=== PATIENT | female | born 1970 | race Caucasian/White ===

== ENCOUNTER 2017-01-11 12:29 | Outpatient (CLI) | payer MEDICAID | END 2017-01-11 23:59 | DX: Z13.9 Encounter for screening, unspecified (principal) ==

== ENCOUNTER 2017-07-27 10:16 | Outpatient (CLI) | payer MEDICAID ==
[2017-07-27 13:23] LABS: ALBUMIN/GLOBULIN RATIO 1.3 (1.0-2.2); BILIRUBIN,TOTAL 0.4 mg/dL (0.2-1.0); CALCIUM 8.9 mg/dL (8.5-10.3); CREATININE 0.6 mg/dL (0.4-1.0); POTASSIUM 4.2 mmol/L (3.5-5.0); TOTAL PROTEIN 6.8 g/dL (6.7-8.2)
== END 2017-07-27 10:17 | disposition home or self-care (01) ==
LOC: LAB.N 10:16
PROVIDERS: ATTEND Physician Assistant
DX: R60.0 Localized edema (principal)
CPT/HCPCS: 36415; 80053

== ENCOUNTER 2018-02-03 08:00 | Outpatient (CLI) | payer MEDICAID | END 2018-02-03 08:01 | disposition home or self-care (01) | LOC: LAB.N 08:00 | PROVIDERS: ATTEND Nurse Practitioner Gerontology | DX: Z79.899 Other long term (current) drug therapy (principal) | CPT/HCPCS: 84132 ==

== ENCOUNTER 2018-03-09 08:00 | Outpatient (CLI) | payer MEDICAID | END 2018-03-09 23:59 | LOC: LAB.N 08:00 | PROVIDERS: ATTEND Obstetrics & Gynecology | DX: Z53.9 Procedure and treatment not carried out, unspecified reason (principal) | CPT/HCPCS: 36415; 83001; 83002 ==

== ENCOUNTER 2018-03-17 08:00 | Outpatient (CLI) | payer MEDICAID ==
[2018-03-17 19:20] LABS: ALBUMIN 3.9 g/dL (3.2-5.5); ALBUMIN/GLOBULIN RATIO 1.3 (1.0-2.2); BILIRUBIN,TOTAL 0.3 mg/dL (0.2-1.0); CALCIUM 9.1 mg/dL (8.5-10.3); CREATININE 0.7 mg/dL (0.4-1.0); TOTAL PROTEIN 6.8 g/dL (6.7-8.2)
== END 2018-03-17 08:01 | disposition home or self-care (01) ==
LOC: LAB.N 08:00
PROVIDERS: ATTEND Nurse Practitioner Gerontology
DX: Z13.9 Encounter for screening, unspecified (principal); M10.9 Gout, unspecified
CPT/HCPCS: 36415; 80053; 84550

== ENCOUNTER 2019-01-15 08:00 | Outpatient (CLI) | payer MEDICAID ==
[2019-01-15 12:37] LABS: BASOPHILS # (AUTO) 0.1 10^3/uL (0.0-0.1); EOSINOPHILS # (AUTO) 0.6 10^3/uL (0.0-0.7); EOSINOPHILS % (AUTO) 6.9 %; LYMPHOCYTES # (AUTO) 2.9 10^3/uL (1.5-3.5); LYMPHOCYTES % (AUTO) 31.5 %; MEAN CORPUSCULAR HEMOGLOBIN 34.6 pg (27.0-31.0); MEAN CORPUSCULAR HGB CONC 35.2 g/dL (32.0-36.0); MEAN CORPUSCULAR VOLUME 98.3 fL (81.0-99.0); MEAN PLATELET VOLUME 9.4 fL (7.9-10.8); MONOCYTES # (AUTO) 0.6 10^3/uL (0.0-1.0); NEUTROPHILS # (AUTO) 4.9 10^3/uL (1.5-6.6); NEUTROPHILS % (AUTO) 53.6 %; PLT - PLATELET COUNT 248 10^3/uL (130-450); RED BLOOD COUNT 4.62 10^6/uL (4.20-5.40); RED CELL DISTRIBUTION WIDTH 14.2 % (12.0-15.0); WHITE BLOOD COUNT 9.1 x10^3/uL (4.8-10.8)
[2019-01-15 12:59] LABS: ALBUMIN 3.7 g/dL (3.2-5.5); ALBUMIN/GLOBULIN RATIO 1.2 (1.0-2.2); ALKALINE PHOSPHATASE 65 IU/L (42-121); ALT ALANINE AMINOTRANSFERASE 30 IU/L (10-60); AST ASPARTATE AMINOTRANSFERASE 24 IU/L (10-42); BILIRUBIN,TOTAL 0.3 mg/dL (0.2-1.0); BUN - BLOOD UREA NITROGEN 8 mg/dL (6-20); CALCIUM 8.8 mg/dL (8.5-10.3); CARBON DIOXIDE - CO2 27 mmol/L (21-32); CHLORIDE 104 mmol/L (101-111); CHOL/HDL RATIO 4.3 (<4.4); CHOLESTEROL 197 mg/dL; CREATININE 0.6 mg/dL (0.4-1.0); GFR - MDRD 107 (>89); GLUCOSE 119 mg/dL (70-100); HDL CHOLESTEROL 46 mg/dL; LDL CHOLESTEROL,CALCULATED 109 mg/dL; LDL/HDL RATIO 2.4 (<4.4); SODIUM 139 mmol/L (135-145); TOTAL PROTEIN 6.8 g/dL (6.7-8.2); VLDL CHOLESTEROL 42 mg/dL
== END 2019-01-15 23:59 | disposition home or self-care (01) ==
LOC: LAB.N 08:00
PROVIDERS: ATTEND Nurse Practitioner Gerontology
DX: Z13.9 Encounter for screening, unspecified (principal)
CPT/HCPCS: 36415; 80053; 80061; 83721; 84443; 85025

== ENCOUNTER 2019-06-11 08:00 | Outpatient (CLI) | payer MEDICAID ==
[2019-06-11 19:23] LABS: ALBUMIN 3.7 g/dL (3.2-5.5); ALBUMIN/GLOBULIN RATIO 1.2 (1.0-2.2); BILIRUBIN,TOTAL 0.4 mg/dL (0.2-1.0); CALCIUM 8.8 mg/dL (8.5-10.3); CREATININE 0.6 mg/dL (0.4-1.0); TOTAL PROTEIN 6.9 g/dL (6.7-8.2)
== END 2019-06-11 23:59 | disposition home or self-care (01) ==
LOC: LAB.N 08:00
PROVIDERS: ATTEND Nurse Practitioner Gerontology
DX: Z79.899 Other long term (current) drug therapy (principal)
CPT/HCPCS: 36415; 80053

== ENCOUNTER 2020-05-23 11:25 | Outpatient (CLI) | payer MEDICAID ==
[2020-05-23 18:12] LABS: BASOPHILS # (AUTO) 0.1 10^3/uL (0.0-0.1); BASOPHILS % (AUTO) 0.6 %; EOSINOPHILS # (AUTO) 0.4 10^3/uL (0.0-0.7); EOSINOPHILS % (AUTO) 3.3 %; HGB - HEMOGLOBIN 14.9 g/dL (12.0-16.0); LYMPHOCYTES # (AUTO) 3.2 10^3/uL (1.5-3.5); LYMPHOCYTES % (AUTO) 30.4 %; MEAN CORPUSCULAR HEMOGLOBIN 33.3 pg (27.0-31.0); MEAN CORPUSCULAR HGB CONC 32.5 g/dL (32.0-36.0); MEAN CORPUSCULAR VOLUME 102.5 fL (81.0-99.0); MEAN PLATELET VOLUME 11.6 fL (7.9-10.8); MONOCYTES # (AUTO) 0.8 10^3/uL (0.0-1.0); PLT - PLATELET COUNT 229 10^3/uL (130-450); RED BLOOD COUNT 4.47 10^6/uL (4.20-5.40); RED CELL DISTRIBUTION WIDTH 13.9 % (12.0-15.0); WHITE BLOOD COUNT 10.6 x10^3/uL (4.8-10.8)
[2020-05-23 18:40] LABS: ALBUMIN 3.9 g/dL (3.2-5.5); ALBUMIN/GLOBULIN RATIO 1.3 (1.0-2.2); ALKALINE PHOSPHATASE 68 IU/L (42-121); ALT ALANINE AMINOTRANSFERASE 28 IU/L (10-60); AST ASPARTATE AMINOTRANSFERASE 21 IU/L (10-42); BILIRUBIN,TOTAL 0.5 mg/dL (0.2-1.0); BUN - BLOOD UREA NITROGEN 10 mg/dL (6-20); CALCIUM 8.9 mg/dL (8.5-10.3); CARBON DIOXIDE - CO2 28 mmol/L (21-32); CHLORIDE 103 mmol/L (101-111); CHOLESTEROL 163 mg/dL; CREATININE 0.8 mg/dL (0.4-1.0); GLUCOSE 97 mg/dL (70-100); HDL CHOLESTEROL 41 mg/dL; LDL CHOLESTEROL,CALCULATED 79 mg/dL; LDL/HDL RATIO 1.9 (<4.4); SODIUM 140 mmol/L (135-145); TOTAL PROTEIN 6.8 g/dL (6.7-8.2); URIC ACID 9.6 mg/dL (2.6-7.2); VLDL CHOLESTEROL 43 mg/dL
== END 2020-05-23 23:59 | disposition home or self-care (01) ==
LOC: LAB.WCP 11:25
PROVIDERS: ATTEND Nurse Practitioner
DX: C64.9 Malignant neoplasm of unspecified kidney, except renal pelvis (principal); E66.01 Morbid (severe) obesity due to excess calories; I10 Essential (primary) hypertension; K21.9 Gastro-esophageal reflux disease without esophagitis; M10.9 Gout, unspecified; Z86.69 Personal history of other diseases of the nervous system and sense organs; J45.909 Unspecified asthma, uncomplicated
CPT/HCPCS: 36415; 80053; 80061; 83721; 84443; 84550; 85025

== ENCOUNTER 2020-07-01 09:56 | Outpatient (CLI) | payer MEDICARE ==
--- NOTE | 2020-07-11 08:49 | Mammography Report ---
BILATERAL DIGITAL SCREENING MAMMOGRAM 3D/2D: 07/01/2020 CLINICAL: Routine screening. No prior exams were available for comparison. There are scattered fibroglandular elements in both br easts. There are benign lymph nodes in both breasts. There is an oval equal density mass with a circumscribed margin in the left breast at 3 o'clock poste rior depth. No other significant masses, calcifications, or other findings are seen in either breast. IMPRESSION: INCOMPLETE: NEEDS ADDITIONAL IMAGING EVALUATION The oval equal density mass in the left breast likely represents a lymph node and is indeterminate. An ultrasound is recommended. This exam was interpreted at Station ID: [id number]. NOTE: For mammograms, a report in lay terms will be sent to the patient. Approximately 15% of breast malignancies will not be visualized mammographically. In the management of a palpable breast mass, a negative mammogram must not discourage biopsy of a clinically suspicious lesion. Electronically Signed By: Suhas tristan/vilma:07/09/2020 10:40:41 ACR BI-RADS Category 0: Incomplete [id number] B -Scattered fibroglandular 0 Ultrasound [id number] Immediate follow-up B
== END 2020-07-01 09:57 | disposition home or self-care (01) ==
LOC: DI.N 09:56
PROVIDERS: ATTEND Nurse Practitioner
DX: Z12.31 Encounter for screening mammogram for malignant neoplasm of breast (principal); Z80.3 Family history of malignant neoplasm of breast; R92.8 Other abnormal and inconclusive findings on diagnostic imaging of breast
CPT/HCPCS: 77063; 77067

== ENCOUNTER 2020-07-13 06:56 | Outpatient (CLI) | payer MEDICARE ==
[2020-07-13] MEDS ORDERED: IOVERSOL 320 100 ML VIAL IVP ONE ×3 (09:45→10:46)
--- NOTE | 2020-07-13 10:56 | CT Report ---
PROCEDURE: ABDOMEN W/WO INDICATIONS: CLAUDICATION, PERIPHERAL EDEMA, RENAL CA CONTRAST: IV CONTRAST: Optiray 320 ml: 140 PO CONTRAST: *NO PO CONTRAST TECHNIQUE: After the administration of intravenous contrast, 5 mm thick sections acquired from the diaphragm to the symphysis. 5 mm coronal and sagittal reformats were acquired. For radiation dose reduction, the following was used: automated exposure control, adjustment of mA and/or kV according to patient siz e. COMPARISON: None available at the time of this study. FINDINGS: Image quality: This study is limited by body habitus. Lung bases: Lung bases are clear. Heart size is normal. Genitourinary: On precontrast imaging, no renal stones are seen. Right superolateral partial nephrec teo changes are seen. No masses or abnormal enhancement can be seen in this region. Prominent renal calyces can be seen at this site, however. The renal calyces otherwise are unremarkable. There is no hydronephrosis. The left kidney is unremarkable. Solid organs: Liver and spleen are normal in size and enhancement. Diffuse fatty liver infiltration can be seen. Gallbladder is decompressed at the time of this study Biliary system is non dilated. Pancreas enhances normally. No adrenal nodules. Peritoneum and bowel: Unenhanced bowel loops are normal in caliber and wall thickness. No free flui d or air. Nodes and vessels: No retroperitoneal or mesenteric adenopathy by size criteria. Aorta and inferior vena cava are normal in caliber. Bones: No suspicious bony lesions. No vertebral body compression fractures. Mild dextroconvex scol iotic curvature is seen. Focal L5-S1 degenerative change is seen. Milder degenerative changes are see n elsewhere. Miscellaneous: There is a fat-containing hernia seen involving the right upper quadrant, as on serie s 7 image 39. A fat-containing periumbilical hernia is also seen. IMPRESSION: Limited study demonstrating right partial nephrectomy change. No findings of local recurrence can be seen. No new masses are seen. No carmella findings of metastatic disease are seen. Incidental note is made of: Fat-containing anterior abdominal wall hernia within the right upper quadrant Fatty liver infiltration Fat-containing periumbilical hernia Dextroconvex scoliotic curvature Focal L5-S1 degenerative change Reviewed by: Andrzej Arreola MD on 07/13/2020 9:55 AM [facility] Approved by: Andrzej Arreola MD on 07/13/2020 9:55 AM [facility] Station ID: [id number]
--- NOTE | 2020-07-13 11:48 | Ultrasound Report ---
PROCEDURE: Duplex Ext Veins Bilateral INDICATIONS: Claudication, peripheral edema. TECHNIQUE: Real-time imaging, as well as color and pulse Doppler interrogation, were performed of the deep veins of both legs from the inguinal ligament to the popliteal fossa. COMPARISON: Correlation is made with the accompanying lower extremity arterial study, 07/13/2020. FINDINGS: The deep veins are normally compressible, and free of intraluminal thrombus. Color and pu lse Doppler demonstrate normal phasic intravascular flow. There is normal augmentation response to d istal compression maneuver. This study is limited by body habitus. IMPRESSION: No findings of deep venous thrombosis are seen. Reviewed by: Andrzej Arreola MD on 07/13/2020 10:47 AM [facility] Approved by: Andrzej Arreola MD on 07/13/2020 10:47 AM [facility] Station ID: [id number]
--- NOTE | 2020-07-13 11:52 | Ultrasound Report ---
PROCEDURE: Duplex Lwr Ext Arterial Bilat INDICATIONS: CLAUDICATION, PERIPHERAL EDEMA TECHNIQUE: Color and pulse Doppler interrogation was performed of both lower extremity arterial systems, with im age documentation. COMPARISON: Correlation is made with the accompanying venous examination, 07/13/2020 FINDINGS: Normal-appearing, triphasic waveforms are seen. No focal increased flow velocity is seen t o suggest a hemodynamically significant stenosis. No significant grayscale abnormality is seen. This study is limited by body habitus. IMPRESSION: No hemodynamically significant stenosis is detected. Reviewed by: Andrzej Arreola MD on 07/13/2020 10:51 AM [facility] Approved by: Andrzej Arreola MD on 07/13/2020 10:51 AM [facility] Station ID: [id number]
== END 2020-07-13 06:57 | disposition home or self-care (01) ==
LOC: DI 06:56
PROVIDERS: ATTEND Nurse Practitioner
DX: Z08 Encounter for follow-up examination after completed treatment for malignant neoplasm (principal); I73.9 Peripheral vascular disease, unspecified; R60.9 Edema, unspecified; I87.319 Chronic venous hypertension (idiopathic) with ulcer of unspecified lower extremity; Z85.528 Personal history of other malignant neoplasm of kidney; Z90.5 Acquired absence of kidney
CPT/HCPCS: 36415; 74170; 82565; 93925; 93970; Q9967

== ENCOUNTER 2021-07-24 16:22 | Outpatient (CLI) | payer MEDICARE, MEDICAID ==
[2021-07-24 21:07] LABS: BASOPHILS # (AUTO) 0.1 10^3/uL (0.0-0.1); BASOPHILS % (AUTO) 0.5 %; EOSINOPHILS # (AUTO) 0.3 10^3/uL (0.0-0.7); EOSINOPHILS % (AUTO) 2.3 %; HCT - HEMATOCRIT 42.6 % (37.0-47.0); HGB - HEMOGLOBIN 13.8 g/dL (12.0-16.0); LYMPHOCYTES # (AUTO) 2.4 10^3/uL (1.5-3.5); LYMPHOCYTES % (AUTO) 20.4 %; MEAN CORPUSCULAR HEMOGLOBIN 31.8 pg (27.0-31.0); MEAN CORPUSCULAR HGB CONC 32.4 g/dL (32.0-36.0); MEAN CORPUSCULAR VOLUME 98.2 fL (81.0-99.0); MEAN PLATELET VOLUME 11.4 fL (7.9-10.8); MONOCYTES # (AUTO) 0.8 10^3/uL (0.0-1.0); MONOCYTES % (AUTO) 6.9 %; NEUTROPHILS # (AUTO) 8.1 10^3/uL (1.5-6.6); NEUTROPHILS % (AUTO) 69.1 %; PLT - PLATELET COUNT 358 10^3/uL (130-450); RED BLOOD COUNT 4.34 10^6/uL (4.20-5.40); RED CELL DISTRIBUTION WIDTH 14.5 % (12.0-15.0); WHITE BLOOD COUNT 11.8 x10^3/uL (4.8-10.8)
[2021-07-24 21:25] LABS: ALBUMIN 3.6 g/dL (3.2-5.5); ALBUMIN/GLOBULIN RATIO 0.9 (1.0-2.2); ALKALINE PHOSPHATASE 85 IU/L (42-121); ALT ALANINE AMINOTRANSFERASE 24 IU/L (10-60); AST ASPARTATE AMINOTRANSFERASE 21 IU/L (10-42); BILIRUBIN,TOTAL 0.7 mg/dL (0.2-1.0); BUN - BLOOD UREA NITROGEN 9 mg/dL (6-20); CALCIUM 9.1 mg/dL (8.5-10.3); CARBON DIOXIDE - CO2 27 mmol/L (21-32); CHLORIDE 101 mmol/L (101-111); CHOLESTEROL 169 mg/dL; CREATININE 0.9 mg/dL (0.4-1.0); GFR - MDRD 66 (>89); GLUCOSE 101 mg/dL (70-100); HDL CHOLESTEROL 42 mg/dL; LDL CHOLESTEROL,CALCULATED 97 mg/dL; LDL/HDL RATIO 2.3 (<4.4); POTASSIUM 4.3 mmol/L (3.5-5.0); SODIUM 140 mmol/L (135-145); TOTAL PROTEIN 7.5 g/dL (6.7-8.2); TRIGLYCERIDES 152 mg/dL; URIC ACID 9.4 mg/dL (2.6-7.2); VLDL CHOLESTEROL 30 mg/dL
[2021-07-24 22:01] LABS: ESTIMATED AVERAGE GLUCOSE 126 mg/dL (70-100)
== END 2021-07-24 16:23 | disposition home or self-care (01) ==
LOC: LAB.N 16:22
PROVIDERS: ATTEND Family Medicine
DX: L03.90 Cellulitis, unspecified (principal); M10.9 Gout, unspecified; E66.01 Morbid (severe) obesity due to excess calories
CPT/HCPCS: 36415; 80053; 80061; 83036; 83721; 84550; 85025; 87040

== ENCOUNTER 2021-08-17 11:17 | Outpatient (CLI) | payer MEDICARE, MEDICAID ==
[2021-08-17 18:00] LABS: CALCIUM 9.3 mg/dL (8.5-10.3); POTASSIUM 4.7 mmol/L (3.5-5.0)
== END 2021-08-17 23:59 | disposition home or self-care (01) ==
LOC: LAB.WCP 11:17
PROVIDERS: ATTEND Family Medicine
DX: I10 Essential (primary) hypertension (principal)
CPT/HCPCS: 36415; 80048

== ENCOUNTER 2021-08-29 17:38 | Outpatient (CLI) | payer MEDICARE, MEDICAID | END 2021-08-29 23:59 | disposition EMS.NT | LOC: EMS 17:38 | DX: M25.519 Pain in unspecified shoulder (principal) ==

== ENCOUNTER 2022-08-20 18:25 | Outpatient (CLI) | payer MEDICARE, MEDICAID | END 2022-08-20 18:26 | disposition EMS.NT | LOC: EMS 18:25 | DX: R53.81 Other malaise (principal) ==

== ENCOUNTER 2022-08-25 21:03 | Outpatient (CLI) | payer MEDICARE, MEDICAID | END 2022-08-25 21:04 | disposition critical access hospital (66) | LOC: EMS 21:03 | DX: R06.02 Shortness of breath (principal); R06.2 Wheezing; R05.9 Cough, unspecified; R53.1 Weakness; R50.9 Fever, unspecified; R41.82 Altered mental status, unspecified; S81.801A Unspecified open wound, right lower leg, initial encounter; X58.XXXA Exposure to other specified factors, initial encounter | CPT/HCPCS: A0425; A0429 ==

== ENCOUNTER 2022-10-11 18:14 | Outpatient (CLI) | payer MEDICARE, MEDICAID | END 2022-10-11 23:59 | disposition critical access hospital (66) | LOC: EMS 18:14 | DX: R10.2 Pelvic and perineal pain (principal); M79.601 Pain in right arm; M79.604 Pain in right leg; W07.XXXA Fall from chair, initial encounter; Y92.020 Kitchen in mobile home as the place of occurrence of the external cause; R60.0 Localized edema | CPT/HCPCS: A0425; A0429 ==

== ENCOUNTER 2022-10-11 18:36 | Emergency (ER) | payer MEDICARE, MEDICAID ==
[2022-10-11 21:03] LABS: BASOPHILS # (AUTO) 0.1 10^3/uL (0.0-0.1); BASOPHILS % (AUTO) 0.5 %; EOSINOPHILS # (AUTO) 0.4 10^3/uL (0.0-0.7); EOSINOPHILS % (AUTO) 3.2 %; HCT - HEMATOCRIT 41.2 % (37.0-47.0); HGB - HEMOGLOBIN 12.9 g/dL (12.0-16.0); LYMPHOCYTES # (AUTO) 3.2 10^3/uL (1.5-3.5); LYMPHOCYTES % (AUTO) 24.7 %; MEAN CORPUSCULAR HEMOGLOBIN 28.9 pg (27.0-31.0); MEAN CORPUSCULAR HGB CONC 31.3 g/dL (32.0-36.0); MEAN CORPUSCULAR VOLUME 92.4 fL (81.0-99.0); MEAN PLATELET VOLUME 9.6 fL (7.9-10.8); MONOCYTES # (AUTO) 0.8 10^3/uL (0.0-1.0); MONOCYTES % (AUTO) 6.1 %; NEUTROPHILS # (AUTO) 8.4 10^3/uL (1.5-6.6); PLT - PLATELET COUNT 330 10^3/uL (130-450); RED BLOOD COUNT 4.46 10^6/uL (4.20-5.40); RED CELL DISTRIBUTION WIDTH 16.4 % (12.0-15.0); WHITE BLOOD COUNT 12.9 x10^3/uL (4.8-10.8)
[2022-10-11 21:18] LABS: ALBUMIN 3.7 g/dL (3.2-5.5); BILIRUBIN,TOTAL 0.4 mg/dL (0.2-1.0); CALCIUM 9.3 mg/dL (8.5-10.3); CREATININE 0.7 mg/dL (0.4-1.0); POTASSIUM 4.3 mmol/L (3.5-5.0); TOTAL PROTEIN 7.3 g/dL (6.7-8.2)
--- NOTE | 2022-10-11 23:02 | XRAY Report ---
PROCEDURE: Sacrum/Coccyx INDICATIONS: pain TECHNIQUE: 3 views of the sacrum and coccyx acquired. COMPARISON: None. FINDINGS: Bones: No definite fracture identified. There is moderate degenerative disc disease at L5-S1 as well as moderate facet arthropathy in the lower lumbar spine. No suspicious bony lesions. Soft tissues: Visualized bowel gas pattern is normal. No suspicious soft tissue densities. IMPRESSION: 1. No definite fracture identified. Reviewed by: Suhas Nash MD on 10/11/2022 11:[address] [facility] Approved by: Suhas Nash MD on 10/11/2022 11:[address] [facility] Station ID: [id number]
--- NOTE | 2022-10-11 23:05 | XRAY Report ---
PROCEDURE: Knee 3 View RT INDICATIONS: pain TECHNIQUE: 3 views of the right knee were acquired. COMPARISON: None. FINDINGS: Bones: No fractures or dislocations. There is moderate severe joint space narrowing in the medial co mpartment and moderate narrowing in the lateral compartment. There is mild lateral shift of the thompson la. Tricompartmental osteophytosis is present. Visualized osseous structures appear osteopenic. No everett spicious bony lesions. Soft tissues: There is a small to moderate joint effusion. No suspicious soft tissue calcifications . IMPRESSION: 1. No definite acute fracture or dislocation. 2. Small to moderate joint effusion. 3. Tricompartmental osteoarthritic changes including moderate to severe joint space narrowing in the medial compartment. Reviewed by: Suhas Nash MD on 10/11/2022 11:04 PM [facility] Approved by: Suhas Nash MD on 10/11/2022 11:04 PM [facility] Station ID: [id number]
--- NOTE | 2022-10-11 23:06 | XRAY Report ---
PROCEDURE: Shoulder 2 View RT INDICATIONS: pain TECHNIQUE: 2 views of the shoulder were acquired. COMPARISON: None. FINDINGS: Bones: No fractures or dislocations. There is moderate degeneration of the glenohumeral joint. Supe rior migration of the humeral head is present with respect to the glenoid. There is mild acromioclavi cular joint degeneration. No suspicious bony lesions. Visualized ribs appear intact. Soft tissues: No suspicious soft tissue calcifications. IMPRESSION: 1. No fracture or dislocation. Reviewed by: Suhas Nash MD on 10/11/2022 11:05 PM [facility] Approved by: Suhas Nash MD on 10/11/2022 11:05 PM [facility] Station ID: [id number]
--- NOTE | 2022-10-11 23:43 | ED Physician Documentation ---
History of Present Illness - Stated complaint Stated Complaint: FELL/R SIDE PX - Chief complaint Chief Complaint: Back Pain - History obtained from History obtained from: Patient, EMS - History of Present Illness Timing: Today - Additonal information Additional information: 52-year-old Chaim Dowell was discharged from [facility] today back to her trailer. When she arrived there she had no help available. She had some difficult time getting into her trailer and she had a fall trying to get to the bathroom. She was too weak to care for herself and had to call the ambulance. She relates a stay at [facility] greater than 1 month for influenza pneumonia complicated by a thumbtack foreign body in the right lung. She has been deconditioned and lives in marginal conditions to begin with. She is not able to care for herself in her home at this time. She has fallen in her trailer and is complaining of pain in her R shoulder, her sacrum and coccyx and her right knee. Review of Systems Constitutional: denies: Fever Eyes: denies: Decreased vision Ears: denies: Ear pain Nose: denies: Congestion Throat: denies: Sore throat Cardiac: reports: Chest pain / pressure Respiratory: reports: Dyspnea, Cough GI: denies: Vomiting : denies: Dysuria Skin: denies: Rash PD PAST MEDICAL HISTORY - Past Medical History Past Medical History: Yes Cardiovascular: Hypertension Respiratory: COPD, Emphysema, Shortness of breath Neuro: Seizure disorder Endocrine/Autoimmune: Type 2 diabetes GI: GERD SNACK BAR COOK: Endometriosis : Incontinence HEENT: Other Psych: Depression, Eating disorder Musculoskeletal: Rheumatoid arthritis, Gout, Chronic back pain Derm: Other - Past Surgical History General: Other /SNACK BAR COOK: Hysterectomy, Other - Present Medications Home Medications: Ambulatory Orders Medication Instructions Recorded Confirmed Fluoxetine HCl 40 mg PO DAILY 07/22/20 10/11/22 Ibuprofen 800 mg PO TID PRN 07/22/20 10/11/22 Lisinopril [Zestril] 40 mg PO DAILY 07/22/20 10/11/22 Albuterol Sulf [Ventolin Hfa 1 - 2 puffs INH Q4HR PRN 08/26/22 10/11/22 Inhaler] Omeprazole Magnesium 40 mg PO DAILY 08/26/22 10/11/22 - Allergies Allergies/Adverse Reactions: Allergies Allergy/AdvReac Type Severity Reaction Status Date / Time Penicillins AdvReac Unknown Verified 10/11/22 19:39 - Social History Does the pt smoke?: Yes Smoking Status: Current every day smoker Does the pt drink ETOH?: No Does the pt have substance abuse?: No - Immunizations Immunizations are current?: Yes - POLST Patient has POLST: No POLST Status: Full Code PD ED PE NORMAL - Vitals Vital signs reviewed: Yes (wide pulse pressure with low diastolic ) - General General: Alert and oriented X 3, Well developed/nourished, Other (moves slowly and appears to be in pain with movement. ) - HEENT HEENT: Atraumatic, PERRL, EOMI - Neck Neck: Supple, no meningeal sign, No bony TTP - Cardiac Cardiac: RRR, No murmur - Respiratory Respiratory: No respiratory distress, Other (diminished breath sounds bilat) - Abdomen Abdomen: Normal bowel sounds, Soft, Non tender, Non distended, No organomegaly - Female Female : Signals Intelligence Superintendent present - Back Back: No CVA TTP, Other (tenderness to the saccrum ) - Derm Derm: Normal color, Warm and dry, No rash - Extremities Extremities: Other (tenderness to the right knee with swelling tenderness to the right shoulder. ) - Neuro Neuro: Alert and oriented X 3, salesperson furs 2-12 intact, No motor deficit, No sensory deficit, Normal speech Eye Opening: Spontaneous Motor: Obeys Commands Verbal: Oriented GCS Score: 15 - Psych Psych: Normal mood, Normal affect Results - Vitals Vitals: Vital Signs - 24 hr 10/11/22 10/12/22 10/12/22 19:29 00:11 03:44 Temperature 36.8 C 36.5 C 37 C Heart Rate 89 78 89 Respiratory 16 78 H 16 Rate Blood Pressure 122/55 L 132/82 H 137/82 H O2 Saturation 98 98 97 10/12/22 10/12/22 06:50 06:55 Temperature 36.8 C 36.8 C Heart Rate 88 61 Respiratory 16 18 Rate Blood Pressure 114/62 136/60 H O2 Saturation 95 95 Oxygen O2 Source [With Activity] NC with 30L high flow O2 Source [Without Activity] NC with 30L high flow O2 Source Room air - Labs Labs: Laboratory Tests 10/11/22 10/11/22 20:58 20:58 WBC 12.9 H RBC 4.46 Hgb 12.9 Hct 41.2 MCV 92.4 MCH 28.9 MCHC 31.3 L RDW 16.4 H Plt Count 330 MPV 9.6 Neut # (Auto) 8.4 H Lymph # (Auto) 3.2 Rankin # (Auto) 0.8 Eos # (Auto) 0.4 Baso # (Auto) 0.1 Absolute Nucleated RBC 0.00 Nucleated RBC % 0.0 Sodium 137 Potassium 4.3 Chloride 105 Carbon Dioxide 25 Anion Gap 7.0 BUN 36 H Creatinine 0.7 Estimated GFR (MDRD) 88 L Glucose 114 H Calcium 9.3 Total Bilirubin 0.4 AST 13 ALT 15 Alkaline Phosphatase 75 Total Protein 7.3 Albumin 3.7 Globulin 3.6 Albumin/Globulin Ratio 1.0 Lipase 34 - Rads (name of study) right knee Radiology: Prelim report reviewed (Impression: 1. No definite acute fracture or dislocation. Small to moderate joint effusion. Tricompartmental osteoarthritic changes including moderate to severe joint space narrowing in the medial compartment.), EMP read indepedently, See rad report Shoulder Radiology: Prelim report reviewed (Impression: No fracture or dislocation.), EMP read indepedently, See rad report Sacrum and coccyx Radiology: Prelim report reviewed (Impression: 1. No definite fracture identified.), EMP read indepedently, See rad report PD MEDICAL DECISION MAKING - ED course Complexity details: reviewed old records, reviewed results, re-evaluated patient, considered differential, d/w patient ED course: 52-year-old female with a recent history of a 6-week admission to [facility] for lung foreign body presenting as influenza and sepsis is deconditioned. She was discharged home today to a poor living situation. She indicates that she was "hoping" she would do better because she does not want to loose her independence. She did have social work consultation extensively at [facility]. She will need placement for conditioning prior to returning home independently. We have consulted social work here and at shift change a disposition is pending and care is turned over to the oncoming Ed physician. Departure - Departure Clinical Impression: Sprain of right knee Qualifiers: Encounter type: initial encounter Involved ligament of knee: unspecified ligament Qualified Code(s): S83.91XA - Sprain of unspecified site of right knee, initial encounter Sprain of right shoulder Qualifiers: Encounter type: initial encounter Shoulder sprain type: unspecified sprain Qualified Code(s): S43.401A - Unspecified sprain of right shoulder joint, initial encounter Condition: Stable
--- NOTE | 2022-10-12 12:17 | ED Physician Documentation ---
ED Addendum - Addendum Addendum: 10/12/22 12:15 garbage pick up worker talked with the patient. They are unable to get any correction orders from the primary care at this time. The patient was unable to afford apparently the cost for SNF placement as well. They would be returning home at this point. Social work gave him information regarding home health and lift assist. Reportedly the patient had been driving some prior to coming to the ER but was having difficulty getting around in the house. She reportedly has a walker.
--- NOTE | 2022-10-12 14:01 | ED Physician Documentation ---
ED Addendum - Addendum Addendum: 10/12/22 14:01 Social work was able to get in touch with apparently the primary care who would be able to look at doing chcf orders. They are asking for physical therapy evaluation. Devendra with social work is working at rehab placement for the patient.
[2022-10-12] MEDS ORDERED: ACETAMINOPHEN 500 MG TABLET PO STA (14:57)
--- NOTE | 2022-10-12 16:07 | ED Physician Documentation ---
ED Addendum - Addendum Addendum: 10/12/22 16:06 Accepted reviewed by [facility], waiting on insurance auth which Katie the social service technician tells me will take a day or 2.
[2022-10-13] MEDS ORDERED: ACETAMINOPHEN 500 MG TABLET PO STA (06:15)
--- NOTE | 2022-10-13 08:12 | ED Physician Documentation ---
ED Addendum - Addendum Addendum: 10/13/22 08:10 The patient had had a diet ordered previously. Her regular medications had not been ordered and since it looks like she may be here for another day or 2, I did order her daily usual medications from her ambulatory med list. She had been using IBU ibuprofen at home as needed. I would switch that to Tylenol 4 times daily and perhaps a longer acting NSAID such as meloxicam daily. Still working on placement to a group home facility and social work is on that. At this point it seems to be awaiting insurance review which may take a day or 2 according to the notes yesterday. The patient is awake and alert conversant this morning. No particular complaints other than the chronic back pain that is stable at this time.
[2022-10-13] MEDS ORDERED: ALBUTEROL 1 PUFF INH SCH (09:00)
[2022-10-13] MEDS: lisinopriL 20 MG TABLET PO SCH (09:29)
[2022-10-13] MEDS: ACETAMINOPHEN 325 MG TABLET PO SCH ×4 (09:29→21:25)
[2022-10-13] MEDS: FLUoxetine 10 MG CAPSULE PO SCH (09:29)
[2022-10-13] MEDS: PANTOPRAZOLE 40 MG TABLET PO SCH (09:30)
[2022-10-13] MEDS: MELOXICAM 7.5 MG TABLET PO SCH (09:30)
[2022-10-14] MEDS: PANTOPRAZOLE 40 MG TABLET PO SCH (10:34)
[2022-10-14] MEDS: ACETAMINOPHEN 325 MG TABLET PO SCH ×4 (10:36→21:32)
[2022-10-14] MEDS: MELOXICAM 7.5 MG TABLET PO SCH (10:36)
[2022-10-14] MEDS: FLUoxetine 10 MG CAPSULE PO SCH (10:45)
[2022-10-14] MEDS: lisinopriL 20 MG TABLET PO SCH (10:45)
--- NOTE | 2022-10-14 13:58 | ED Physician Documentation ---
ED Addendum - Addendum Addendum: Subjective:Patient expresses that she is feeling a frustration and scared as she is unsure of where she is going to go. Objective:Alert, pleasant,Vitals are stable Assessment:Generalized weakness and deconditioning after recent hospitalization Plan:Disposition pending social work. They are attempting to place her in a SNF but so far there are no excepting facilities.
[2022-10-15] MEDS: ACETAMINOPHEN 325 MG TABLET PO SCH ×4 (09:28→19:55)
[2022-10-15] MEDS: MELOXICAM 7.5 MG TABLET PO SCH (09:29)
[2022-10-15] MEDS: FLUoxetine 10 MG CAPSULE PO SCH (09:29)
[2022-10-15] MEDS: lisinopriL 20 MG TABLET PO SCH (09:29)
[2022-10-15] MEDS: PANTOPRAZOLE 40 MG TABLET PO SCH (09:29)
--- NOTE | 2022-10-15 13:32 | ED Physician Documentation ---
ED Addendum - Addendum Addendum: 10/15/22 13:31 The patient states she is comfortable at this time. She remarks that she was able to get to the bedside commode with assistance and a gait belt a couple of times. Otherwise using a bedpan. She states she is comfortable with her current level of medication and does not want any opioid type medicines for pain. She states she did not need any change in her current regimen of diet or medication. Physical therapy was just coming in to see her as well to work on some daily exercise and strengthening. Still pending hearing back from some of the facilities for placement for half-way. Plan: Continue with current activity, medication, diet.
[2022-10-16] MEDS: PANTOPRAZOLE 40 MG TABLET PO SCH (10:30)
[2022-10-16] MEDS: ACETAMINOPHEN 325 MG TABLET PO SCH ×4 (10:30→21:29)
[2022-10-16] MEDS: MELOXICAM 7.5 MG TABLET PO SCH (10:46)
[2022-10-16] MEDS: FLUoxetine 10 MG CAPSULE PO SCH (10:46)
[2022-10-16] MEDS: lisinopriL 20 MG TABLET PO SCH (10:46)
[2022-10-16] MEDS: ALBUTEROL 1 PUFF INH PRN (11:40)
--- NOTE | 2022-10-16 15:22 | ED Physician Documentation ---
ED Addendum - Addendum Addendum: 10/16/22 15:21 Met briefly with the patient to was feeling in comfortable at the time of talking with her. She states she was doing okay with the current medication and diet regimen. No particular word from social work at this time. Waiting to hear back from another facility. Plan: Maintain current medication and diet regimen. Bedside commode and activity as she can tolerate.
[2022-10-17] MEDS: PANTOPRAZOLE 40 MG TABLET PO SCH (08:47)
[2022-10-17] MEDS: ACETAMINOPHEN 325 MG TABLET PO SCH ×4 (08:47→23:45)
[2022-10-17] MEDS: MELOXICAM 7.5 MG TABLET PO SCH (08:47)
[2022-10-17] MEDS: lisinopriL 20 MG TABLET PO SCH (08:49)
[2022-10-17] MEDS: FLUoxetine 10 MG CAPSULE PO SCH (08:49)
--- NOTE | 2022-10-17 13:22 | ED Physician Documentation ---
ED Addendum - Addendum Addendum: 10/17/22 13:20 I met briefly with the patient this morning. She seemed to be doing okay on current medications diet. She seemed in good spirits. Awake alert and conversant. No apparent distress. She has been using bedside commode apparently with assistance. Assessment: 1. Generalized weakness 2. Right hip contusion 3. Need for assistance in care Plan: Still working in on placement for rehab/assisted living. Per social work notes, there is still at least 1 facilities waiting to be heard from. Not clear the options if no other facilities are able to take her.
[2022-10-17] MEDS: ALBUTEROL 1 PUFF INH PRN (13:46)
[2022-10-18] MEDS: FLUoxetine 10 MG CAPSULE PO SCH (10:39)
[2022-10-18] MEDS: ACETAMINOPHEN 325 MG TABLET PO SCH ×4 (10:40→23:12)
[2022-10-18] MEDS: PANTOPRAZOLE 40 MG TABLET PO SCH (10:40)
[2022-10-18] MEDS: MELOXICAM 7.5 MG TABLET PO SCH (10:40)
[2022-10-18] MEDS: lisinopriL 20 MG TABLET PO SCH (10:40)
--- NOTE | 2022-10-18 18:19 | ED Physician Documentation ---
ED Addendum - Addendum Addendum: 10/18/22 18:17 The patient was signed out to me at change of shift this morning. She continues to board in the ED, pending transfer to an assisted living facility. The patient has been stable in the ED, watching movies in her bed. In fact, the patient had to be told to turn down the volume because it was disturbing other patients in the ED and interfering with physicians' ability to interview patients. The patient has had no complaints throughout the day. She will continue to work with social work to find placement. 10/18/22 18:19
[2022-10-19] MEDS: MELOXICAM 7.5 MG TABLET PO SCH (09:45)
[2022-10-19] MEDS: lisinopriL 20 MG TABLET PO SCH (09:45)
[2022-10-19] MEDS: FLUoxetine 10 MG CAPSULE PO SCH (09:45)
[2022-10-19] MEDS: ACETAMINOPHEN 325 MG TABLET PO SCH ×4 (09:45→23:04)
[2022-10-19] MEDS: PANTOPRAZOLE 40 MG TABLET PO SCH (09:45)
--- NOTE | 2022-10-19 13:34 | ED Physician Documentation ---
ED Addendum - Addendum Addendum: 10/19/22 13:32 The patient states she is doing okay. She states she has been maintaining her daily medications. She did note that she has not been on Prozac for a few months and assess that it be discontinued. I have been ordered as part of a daily medicine off her med list. I will discontinue that 1. The other medicines are appropriate according to the patient. Her albuterol is listed as twice a day as needed as needed. She was given the inhalers without needing it yesterday so wanted to point that out. I did verify it is ordered as needed. The social work apparently is still continuing with searches for long-term facilities. Apparently if no ones are found in an extended search, possibility might be for regions to accept her as a short-term rehab. I will verify with nursing social services aide notes. Plan: Continue with current diet and medication and attempt a little bit of physical therapy or up and around. She states she is getting bedside commode with assistance. Discontinue the Prozac order and ensure the albuterol is at as needed order.
[2022-10-20] MEDS: lisinopriL 20 MG TABLET PO SCH (10:52)
[2022-10-20] MEDS: PANTOPRAZOLE 40 MG TABLET PO SCH (10:52)
[2022-10-20] MEDS: ACETAMINOPHEN 325 MG TABLET PO SCH ×4 (10:52→20:21)
[2022-10-20] MEDS: MELOXICAM 7.5 MG TABLET PO SCH (10:52)
--- NOTE | 2022-10-20 17:56 | ED Physician Documentation ---
ED Addendum - Addendum Addendum: 10/20/22 17:55 The patient was signed out to me at change of shift, continuing to board in the emergency department, pending acceptance at an assisted living facility. She had no issues throughout the day, and her condition has been stable.
[2022-10-21] MEDS: lisinopriL 20 MG TABLET PO SCH (09:09)
[2022-10-21] MEDS: MELOXICAM 7.5 MG TABLET PO SCH (09:09)
[2022-10-21] MEDS: ACETAMINOPHEN 325 MG TABLET PO SCH ×3 (09:09→18:59)
[2022-10-21] MEDS: PANTOPRAZOLE 40 MG TABLET PO SCH (09:09)
[2022-10-21] MEDS: NYSTATIN POWDER 15 GM TOP SCH (20:44)
[2022-10-22] MEDS: ACETAMINOPHEN 325 MG TABLET PO SCH ×5 (00:36→22:12)
[2022-10-22] MEDS: lisinopriL 20 MG TABLET PO SCH (12:41)
[2022-10-22] MEDS: NYSTATIN POWDER 15 GM TOP SCH ×2 (12:42→22:12)
[2022-10-22] MEDS: PANTOPRAZOLE 40 MG TABLET PO SCH (12:42)
[2022-10-22] MEDS: MELOXICAM 7.5 MG TABLET PO SCH (12:42)
[2022-10-23] MEDS: NYSTATIN POWDER 15 GM TOP SCH ×2 (10:09→21:04)
[2022-10-23] MEDS: MELOXICAM 7.5 MG TABLET PO SCH (10:09)
[2022-10-23] MEDS: ACETAMINOPHEN 325 MG TABLET PO SCH ×4 (10:09→21:04)
[2022-10-23] MEDS: PANTOPRAZOLE 40 MG TABLET PO SCH (10:09)
[2022-10-23] MEDS: lisinopriL 20 MG TABLET PO SCH (10:09)
--- NOTE | 2022-10-23 18:39 | ED Physician Documentation ---
ED Addendum - Addendum Addendum: 10/23/22 18:38 The patient did not have any particular complaints today. Still pending trying to find a facility for rehab/reconditioning. Report from the color technician is she is reluctant to get up without assistance though is able to get up bedside for commode. We will try to work on conditioning with physical therapy. Otherwise continue current medications and diet.
[2022-10-24] MEDS: MELOXICAM 7.5 MG TABLET PO SCH (11:01)
[2022-10-24] MEDS: NYSTATIN POWDER 15 GM TOP SCH ×2 (11:01→20:44)
[2022-10-24] MEDS: PANTOPRAZOLE 40 MG TABLET PO SCH (11:01)
[2022-10-24] MEDS: lisinopriL 20 MG TABLET PO SCH (11:01)
[2022-10-24] MEDS: ACETAMINOPHEN 325 MG TABLET PO SCH ×4 (11:01→20:44)
[2022-10-25] MEDS: ACETAMINOPHEN 325 MG TABLET PO SCH ×4 (08:52→22:02)
[2022-10-25] MEDS: PANTOPRAZOLE 40 MG TABLET PO SCH (08:53)
[2022-10-25] MEDS: NYSTATIN POWDER 15 GM TOP SCH ×2 (08:53→21:41)
[2022-10-25] MEDS: MELOXICAM 7.5 MG TABLET PO SCH (08:53)
[2022-10-25] MEDS: lisinopriL 20 MG TABLET PO SCH (08:53)
[2022-10-26] MEDS: ACETAMINOPHEN 325 MG TABLET PO SCH ×4 (10:23→23:25)
[2022-10-26] MEDS: lisinopriL 20 MG TABLET PO SCH (10:24)
[2022-10-26] MEDS: PANTOPRAZOLE 40 MG TABLET PO SCH (10:25)
[2022-10-26] MEDS: NYSTATIN POWDER 15 GM TOP SCH ×2 (10:25→21:57)
[2022-10-26] MEDS: MELOXICAM 7.5 MG TABLET PO SCH (10:25)
[2022-10-27] MEDS: ACETAMINOPHEN 325 MG TABLET PO SCH ×4 (09:01→23:35)
[2022-10-27] MEDS: NYSTATIN POWDER 15 GM TOP SCH ×2 (09:01→21:12)
[2022-10-27] MEDS: PANTOPRAZOLE 40 MG TABLET PO SCH (09:01)
[2022-10-27] MEDS: lisinopriL 20 MG TABLET PO SCH (09:01)
[2022-10-27] MEDS: MELOXICAM 7.5 MG TABLET PO SCH (09:01)
--- NOTE | 2022-10-27 13:37 | ED Physician Documentation ---
ED Addendum - Addendum Addendum: Patient's only concern this morning is having the possibility of going to a state home and losing her independence. Otherwise she is doing better and has been able to get up to the bedside commode without any assistance.She reports doing the strengthening exercises and working with PT. Patient continues to board in the emergency department pending placement/safe disposition.
[2022-10-28] MEDS: ACETAMINOPHEN 325 MG TABLET PO SCH ×4 (10:04→21:45)
[2022-10-28] MEDS: PANTOPRAZOLE 40 MG TABLET PO SCH ×2 (10:04→10:05)
[2022-10-28] MEDS: lisinopriL 20 MG TABLET PO SCH (10:04)
[2022-10-28] MEDS: MELOXICAM 7.5 MG TABLET PO SCH (10:05)
[2022-10-28] MEDS: NYSTATIN POWDER 15 GM TOP SCH ×2 (10:16→21:45)
[2022-10-29] MEDS: ACETAMINOPHEN 325 MG TABLET PO SCH ×4 (08:58→20:59)
[2022-10-29] MEDS: lisinopriL 20 MG TABLET PO SCH (08:58)
[2022-10-29] MEDS: MELOXICAM 7.5 MG TABLET PO SCH (08:58)
[2022-10-29] MEDS: NYSTATIN POWDER 15 GM TOP SCH ×2 (08:59→21:00)
[2022-10-30] MEDS: lisinopriL 20 MG TABLET PO SCH (12:34)
[2022-10-30] MEDS: ACETAMINOPHEN 325 MG TABLET PO SCH ×4 (12:34→20:55)
[2022-10-30] MEDS: NYSTATIN POWDER 15 GM TOP SCH ×2 (12:35→20:58)
[2022-10-30] MEDS: PANTOPRAZOLE 40 MG TABLET PO SCH (12:35)
[2022-10-30] MEDS: MELOXICAM 7.5 MG TABLET PO SCH (12:35)
[2022-10-31] MEDS: NYSTATIN POWDER 15 GM TOP SCH ×3 (09:00→23:23)
[2022-10-31] MEDS: MELOXICAM 7.5 MG TABLET PO SCH (09:26)
[2022-10-31] MEDS: lisinopriL 20 MG TABLET PO SCH (09:26)
[2022-10-31] MEDS: ACETAMINOPHEN 325 MG TABLET PO SCH ×4 (09:26→21:00)
[2022-10-31] MEDS: PANTOPRAZOLE 40 MG TABLET PO SCH (09:26)
[2022-11-01] MEDS: lisinopriL 20 MG TABLET PO SCH (08:17)
[2022-11-01] MEDS: NYSTATIN POWDER 15 GM TOP SCH ×2 (08:17→21:01)
[2022-11-01] MEDS: PANTOPRAZOLE 40 MG TABLET PO SCH (08:18)
[2022-11-01] MEDS: ACETAMINOPHEN 325 MG TABLET PO SCH ×4 (08:18→21:00)
[2022-11-01] MEDS: MELOXICAM 7.5 MG TABLET PO SCH (08:21)
--- NOTE | 2022-11-01 09:00 | ED Physician Documentation ---
ED Addendum - Addendum Addendum: 11/01/22 08:57 I talked with the patient this morning. She states she has been doing okay with her diet. She had requested no eggs as she does not like them but is not allergic per se. Her breakfast have included eggs but there is other food available including potatoes and toast. She has been doing adult coloring books and has a collection of pens with her 2 provider activity. She states this was encouraged by OT. She has also been trying to get up and around a few times a day. She states yesterday she made 15 steps with a walker and is trying to do conditioning per physical therapy. She states her shoulder and foot hurt and are limiting that some in addition to her general strength and breathing. The patient states social work had been expanding the look for placement. Apparently there is supposed to hear back from a couple of places today or tomorrow so it still a work in progress. Assessment: Generalized weakness 2. Dyspnea with exertion 3. Shoulder pain 4. Deconditioning Plan: Still working on placement for nursing and rehab. The patient did not fe el she is strong enough to be able to take care of herself at home at this point. She is hoping for increased strength and endurance.
[2022-11-02] MEDS: ACETAMINOPHEN 325 MG TABLET PO SCH ×4 (10:20→22:05)
[2022-11-02] MEDS: PANTOPRAZOLE 40 MG TABLET PO SCH (10:21)
[2022-11-02] MEDS: NYSTATIN POWDER 15 GM TOP SCH ×2 (10:21→22:06)
[2022-11-02] MEDS: MELOXICAM 7.5 MG TABLET PO SCH (10:21)
[2022-11-02] MEDS: lisinopriL 20 MG TABLET PO SCH (10:21)
[2022-11-03] MEDS: ACETAMINOPHEN 325 MG TABLET PO SCH ×4 (09:10→21:09)
[2022-11-03] MEDS: NYSTATIN POWDER 15 GM TOP SCH ×2 (09:10→21:09)
[2022-11-03] MEDS: lisinopriL 20 MG TABLET PO SCH (09:10)
[2022-11-03] MEDS: PANTOPRAZOLE 40 MG TABLET PO SCH (09:10)
[2022-11-03] MEDS: MELOXICAM 7.5 MG TABLET PO SCH (09:10)
[2022-11-04] MEDS: MELOXICAM 7.5 MG TABLET PO SCH (12:04)
[2022-11-04] MEDS: NYSTATIN POWDER 15 GM TOP SCH ×2 (12:04→21:18)
[2022-11-04] MEDS: PANTOPRAZOLE 40 MG TABLET PO SCH (12:05)
[2022-11-04] MEDS: ACETAMINOPHEN 325 MG TABLET PO SCH ×4 (12:05→21:18)
[2022-11-04] MEDS: lisinopriL 20 MG TABLET PO SCH (12:05)
[2022-11-05] MEDS: PANTOPRAZOLE 40 MG TABLET PO SCH (08:35)
[2022-11-05] MEDS: MELOXICAM 7.5 MG TABLET PO SCH (08:35)
[2022-11-05] MEDS: lisinopriL 20 MG TABLET PO SCH (08:35)
[2022-11-05] MEDS: ACETAMINOPHEN 325 MG TABLET PO SCH (08:35)
[2022-11-05] MEDS: NYSTATIN POWDER 15 GM TOP SCH (08:38)
[2022-11-05 08:40] VITALS: BP 145/78
== END 2022-11-05 08:39 | disposition critical access hospital (66) ==
LOC: EDUNIT# → ED 18:36
DX: Z20.822 Contact with and (suspected) exposure to COVID-19 (principal); S83.91XA Sprain of unspecified site of right knee, initial encounter; S43.401A Unspecified sprain of right shoulder joint, initial encounter; W19.XXXA Unspecified fall, initial encounter; I10 Essential (primary) hypertension; F17.200 Nicotine dependence, unspecified, uncomplicated; Z02.2 Encounter for examination for admission to residential institution; Z91.81 History of falling
CPT/HCPCS: 36415; 72220; 73030; 73562; 80053; 83690; 85025; 87635; 94640; 99284; 99285; A9270